=== PATIENT | male | born 1950 | race Caucasian/White ===

== ENCOUNTER 2017-06-18 19:05 | Emergency (ER) | payer OTHER ==
[~2017-06-18] VITALS: Ht 161.3 cm; Wt 59.6 kg
[~2017-06-18 19:05] MED LIST: ACCUPRIL10 MG PO; AMIODARONE HCL200 MG PO; ASPIR-MOX 325325 M1 PO; B-12250 MCG PO; FUROSEMIDE20 MG PO; METOPROLOL; PROTONIX40 MG PO; QUINAPRIL; TOPROL XL100 MG PO
[2017-06-18] MEDS ORDERED: AUGMENTIN875 MG PO (21:13)
[2017-06-18 21:22] VITALS: BP 151/98
== END 2017-06-18 21:22 | disposition home or self-care (01) ==
LOC: EME 19:05
PROC: 3E0234Z Introduction of Serum, Toxoid and Vaccine into Muscle, Percutaneous Approach (ICD-10-PCS; principal; 2017-06-18)
DX: S00.81XA Abrasion of other part of head, initial encounter (principal); W01.0XXA Fall on same level from slipping, tripping and stumbling without subsequent striking against object, initial encounter; I50.9 Heart failure, unspecified; I11.0 Hypertensive heart disease with heart failure; K21.9 Gastro-esophageal reflux disease without esophagitis; F41.9 Anxiety disorder, unspecified; F03.90 Unspecified dementia, unspecified severity, without behavioral disturbance, psychotic disturbance, mood disturbance, and anxiety; Z79.82 Long term (current) use of aspirin; Z87.891 Personal history of nicotine dependence; Z86.74 Personal history of sudden cardiac arrest
CPT/HCPCS: 70450; 70486; 99281; 99284